=== PATIENT | female | born 1980 | race Native Hawaiian/Other Pacific Islander ===

== ENCOUNTER 2016-03-25 11:09 | Inpatient (IN) | payer OTHER ==
[~2016-03-25] VITALS: Ht 165.1 cm; Wt 82.6 kg
[~2016-03-25 11:09] MED LIST: LANTUS100 MG/ML SC
[2016-03-25 11:47] VITALS: BP 158/80; TEMP 99.7
[2016-03-25 13:29] LABS: PLATELET COUNT 218 K/uL (152-353)
[2016-03-25 13:37] LABS: POTASSIUM 3.6 mmol/L (3.6-5.2); SODIUM 131 mmol/L (136-145)
[2016-03-25 17:18] VITALS: BP 160/87; TEMP 98.9; Ht 165.1 cm; Wt 82.6 kg
[2016-03-25 20:00] VITALS: BP 137/78; TEMP 97.8
[2016-03-26 04:00] VITALS: BP 138/73; TEMP 99.9
[2016-03-26 05:15] LABS: PLATELET COUNT 198 K/uL (152-353)
[2016-03-26 05:36] LABS: POTASSIUM 3.6 mmol/L (3.6-5.2); SODIUM 132 mmol/L (136-145)
[2016-03-26 12:12] VITALS: BP 137/71; TEMP 98.4
[2016-03-26 16:00] VITALS: BP 111/56; BP 141/70; TEMP 99.2
[2016-03-26 20:35] VITALS: BP 120/69; TEMP 99
[2016-03-27] VITALS: BP 137/78; TEMP 97.9
[2016-03-27 04:00] VITALS: BP 99/59; TEMP 98.1
[2016-03-27 05:55] LABS: PLATELET COUNT 193 K/uL (152-353)
[2016-03-27 06:16] LABS: POTASSIUM 3.3 mmol/L (3.6-5.2); SODIUM 134 mmol/L (136-145)
[2016-03-27 08:00] VITALS: BP 126/70; TEMP 98.7
[2016-03-27 12:00] VITALS: BP 132/74; TEMP 98.3
[2016-03-27 20:00] VITALS: BP 154/88; TEMP 97.4
[2016-03-28] VITALS: BP 119/59; TEMP 97.1
[2016-03-28 05:10] LABS: PLATELET COUNT 199 K/uL (152-353)
[2016-03-28 05:34] LABS: POTASSIUM 3.8 mmol/L (3.6-5.2); SODIUM 133 mmol/L (136-145)
[2016-03-28 08:00] VITALS: BP 121/71; TEMP 98.3
[2016-03-28 12:18] VITALS: BP 128/79; TEMP 97.8
== END 2016-03-28 15:55 | disposition home or self-care (01) | DRG 639 ==
LOC: ED 11:09 → MED/SURG 14:19
PROVIDERS: Emergency Medicine; ADMIT Specialist
DX: E11.621 Type 2 diabetes mellitus with foot ulcer (principal); B95.4 Other streptococcus as the cause of diseases classified elsewhere
CPT/HCPCS: 36415; 80048; 80053; 82948; 83036; 83735; 85027; 85651; 87070; 87077; 87185; 87186; 87205; 96365; 96372; 99284; J1815; J2543; J3370

== ENCOUNTER 2017-04-18 17:07 | Emergency (ER) | payer OTHER ==
[~2017-04-18] VITALS: Ht 165.1 cm; Wt 77.1 kg
[2017-04-18 18:11] LABS: PLATELET COUNT 225 K/uL (152-353)
[2017-04-18 18:22] LABS: POTASSIUM 3.6 mmol/L (3.6-5.2)
[2017-04-18 18:45] VITALS: BP 157/89; TEMP 99.9
== END 2017-04-18 18:48 | disposition home or self-care (01) ==
LOC: ED 17:07
DX: J06.9 Acute upper respiratory infection, unspecified (principal)
CPT/HCPCS: 36415; 80053; 85027; 87081; 87804; 87880; 99283

== ENCOUNTER 2017-06-19 13:52 | Outpatient (CLI) | payer OTHER | END 2017-06-19 21:50 | disposition home or self-care (01) | LOC: RAD 13:52 | DX: M54.5 Low back pain (principal) ==

== ENCOUNTER 2017-08-02 14:27 | Observation (INO) | payer OTHER ==
[~2017-08-02] VITALS: Ht 165.1 cm; Wt 76.7 kg
[2017-08-02] VITALS (14 sets, daily range): BP systolic 117–147; BP diastolic 67–86; TEMP 97.6–98.7; Ht 165.1 cm; Wt 76.7 kg
[2017-08-02 09:58] LABS: PLATELET COUNT 202 K/uL (152-353)
--- NOTE | 2017-08-02 16:23 | NUR ---
REPORT CALLED FROM OR.
--- NOTE | 2017-08-02 16:23 | NUR ---
PT RECEIVED FROM OR. PT DROWSY WITH O2 ON. DRESSINGS DRY AND INTACT. BP 147/73. TEMP 98.7. PULSE 97. RR EQUAL NONLABORED AT 16. O2 SAT 95% ON RA. SR UP X2. BED IN LOWEST POSITION. CALL LIGHT IN REACH. WILL CONTINUE TO MONTIOR.
[2017-08-03] VITALS: BP 119/69; TEMP 97.7
[2017-08-03 04:00] VITALS: BP 111/65; TEMP 98.1
[2017-08-03 05:52] LABS: PLATELET COUNT 192 K/uL (152-353)
[2017-08-03 08:00] VITALS: BP 125/79; TEMP 98.5
--- NOTE | 2017-08-03 11:32 | NUR ---
DC INSTRUCTIONS GIVEN TO PT. PT VERBALIZED UNDERSTANDING. NAD NOTED. IV DC;'D WITH CANNULA INTACT AND SITE CARE PROVIDED. PT LEFT WITH FAMILY MEMBER AT THIS TIME VIA WC.
== END 2017-08-03 11:30 | disposition home or self-care (01) ==
LOC: OR 14:27 → MED/SURG 16:18
PROVIDERS: Emergency Medicine; ADMIT Student in an Organized Health Care Education/Training Program
PROC: 0DTJ4ZZ Resection of Appendix, Percutaneous Endoscopic Approach (ICD-10-PCS; principal; 2017-08-02)
DX: K35.80 Unspecified acute appendicitis (principal); E10.9 Type 1 diabetes mellitus without complications
CPT/HCPCS: 36415; 80053; 81000; 81025; 85027; 96365; 96375; 99220; 99284; J0180; G0378; J0132; J0330; J0690; J1100; J1170; J1644; J1885; J2001; J2250; J2405; J2543; J2704; J2765; J3010; J3490; Q9963

== ENCOUNTER 2017-08-13 13:52 | Emergency (ER) | payer OTHER ==
[~2017-08-13] VITALS: Ht 165.1 cm; Wt 77.1 kg
[2017-08-13 14:05] VITALS: BP 137/76; TEMP 98.3
== END 2017-08-13 16:11 | disposition home or self-care (01) ==
LOC: ED 13:52
DX: Z48.89 Encounter for other specified surgical aftercare (principal)
CPT/HCPCS: 99281

== ENCOUNTER 2018-10-04 08:34 | Emergency (ER) | payer OTHER ==
[~2018-10-04] VITALS: Ht 165.1 cm; Wt 81.2 kg
[2018-10-04 08:40] VITALS: BP 177/88; TEMP 97.5
== END 2018-10-04 09:15 | disposition home or self-care (01) ==
LOC: ED 08:34
DX: S93.491A Sprain of other ligament of right ankle, initial encounter (principal); T78.8XXA Other adverse effects, not elsewhere classified, initial encounter; Y92.89 Other specified places as the place of occurrence of the external cause
CPT/HCPCS: 99281

== ENCOUNTER 2019-02-15 08:48 | Emergency (ER) | payer OTHER ==
[~2019-02-15] VITALS: Ht 165.1 cm; Wt 81.2 kg
[2019-02-15 10:08] LABS: POTASSIUM 4.1 mmol/L (3.6-5.2)
[2019-02-15 10:10] LABS: PLATELET COUNT 162 K/uL (152-353)
[2019-02-15 12:32] VITALS: BP 174/89; TEMP 98.2
== END 2019-02-15 12:32 | disposition home or self-care (01) ==
LOC: ED 08:48
PROVIDERS: Family Medicine
DX: E11.621 Type 2 diabetes mellitus with foot ulcer (principal); E11.65 Type 2 diabetes mellitus with hyperglycemia
CPT/HCPCS: 36415; 80053; 81000; 82962; 85027; 96372; 99283; J1815

== ENCOUNTER 2020-05-25 11:29 | Outpatient (CLI) | payer OTHER ==
[2020-05-25 11:47] LABS: PLATELET COUNT 182 K/uL (152-353)
[2020-05-25 11:53] LABS: POTASSIUM 4.6 mmol/L (3.6-5.2)
== END 2020-05-25 22:13 | disposition home or self-care (01) ==
LOC: LAB 11:29
PROVIDERS: ATTEND Physician Assistant
DX: I10 Essential (primary) hypertension (principal); E78.00 Pure hypercholesterolemia, unspecified; E11.9 Type 2 diabetes mellitus without complications; E55.9 Vitamin D deficiency, unspecified
CPT/HCPCS: 80053; 80061; 82306; 83036; 85027

== ENCOUNTER 2020-08-17 16:08 | Emergency (ER) | payer OTHER ==
[~2020-08-17] VITALS: Ht 165.1 cm; Wt 86.2 kg
[2020-08-17 16:11] VITALS: TEMP 97
[2020-08-17 18:45] VITALS: BP 139/78
== END 2020-08-17 18:45 | disposition home or self-care (01) ==
LOC: ED 16:08
DX: Z48.01 Encounter for change or removal of surgical wound dressing (principal); L89.614 Pressure ulcer of right heel, stage 4
CPT/HCPCS: 96372; 99283; J0696

== ENCOUNTER 2020-09-07 11:49 | Emergency (ER) | payer OTHER ==
[2020-09-15 10:29] LABS: PLATELET COUNT 182 K/uL (152-353)
[2020-09-15 10:30] LABS: POTASSIUM 2.9 mmol/L (3.6-5.2)
== END 2020-09-07 17:00 | disposition home or self-care (01) ==
LOC: ED 11:49
PROVIDERS: Emergency Medicine Emergency Medical Services
DX: L89.619 Pressure ulcer of right heel, unspecified stage (principal); L03.115 Cellulitis of right lower limb; D64.89 Other specified anemias; R00.0 Tachycardia, unspecified
CPT/HCPCS: 36415; 80053; 82150; 83690; 85027; 93005; 96360; 96361; 96365; 99284

== ENCOUNTER 2021-07-30 10:52 | Emergency (ER) | payer OTHER ==
[~2021-07-30] VITALS: Ht 165.1 cm; Wt 82.6 kg
[2021-07-30 11:00] VITALS: TEMP 99.2
[2021-07-30 13:14] LABS: PLATELET COUNT 193 K/uL (152-353)
[2021-07-30 13:23] LABS: POTASSIUM 3.7 mmol/L (3.6-5.2); SODIUM 139 mmol/L (136-145)
[2021-07-30 15:58] VITALS: BP 142/76
== END 2021-07-30 15:59 | disposition home or self-care (01) ==
LOC: ED 10:52
PROVIDERS: Emergency Medicine
DX: R10.84 Generalized abdominal pain (principal); A59.8 Trichomoniasis of other sites
CPT/HCPCS: 80053; 81000; 85027; 99283

== ENCOUNTER 2022-03-11 14:28 | Emergency (ER) | payer OTHER ==
[~2022-03-11] VITALS: Ht 165.1 cm; Wt 82.6 kg
[2022-03-11 14:36] VITALS: TEMP 97.9
[2022-03-11 15:24] VITALS: BP 153/78
== END 2022-03-11 15:26 | disposition home or self-care (01) ==
LOC: ED 14:28
DX: H65.192 Other acute nonsuppurative otitis media, left ear (principal)
CPT/HCPCS: 99281

== ENCOUNTER 2022-05-13 12:30 | Outpatient (CLI) | payer OTHER | END 2022-05-13 22:54 | disposition home or self-care (01) | LOC: MRI 12:30 | PROVIDERS: ATTEND Student in an Organized Health Care Education/Training Program | DX: E10.621 Type 1 diabetes mellitus with foot ulcer (principal); L97.522 Non-pressure chronic ulcer of other part of left foot with fat layer exposed; I10 Essential (primary) hypertension; Z89.611 Acquired absence of right leg above knee | CPT/HCPCS: 36415; 82565; 84520; A9576 ==

== ENCOUNTER 2022-07-18 13:02 | Inpatient (IN) | payer OTHER ==
[~2022-07-18] VITALS: Ht 167.6 cm; Wt 83.7 kg
[2022-07-18 14:14] VITALS: BP 159/62; TEMP 98.8; Ht 167.6 cm; Wt 83.7 kg
[2022-07-18] MEDS ORDERED: HYDR5TAB9 PO (14:35)
[2022-07-18] MEDS ORDERED: ONDANSETRON HCL ODT PO (14:36)
[2022-07-18] MEDS ORDERED: TIZA4TAB5 PO (14:37)
[2022-07-18] MEDS ORDERED: HUMULIN R500 UNIT/M SC (14:38)
[2022-07-18] MEDS ORDERED: GRALISE600 MG PO (14:39)
[2022-07-18] MEDS ORDERED: VITAMIN D350000 UNIT PO (14:41)
[2022-07-18] MEDS ORDERED: OMEP40CA PO (14:41)
[2022-07-18] MEDS ORDERED: XYZAL ALLERGY 245 MG PO (14:42)
[2022-07-18] MEDS ORDERED: ZESTRIL40 MG PO (14:42)
[2022-07-18] MEDS ORDERED: CRANBERR5 PO (14:46)
[2022-07-18 16:29] VITALS: BP 142/61; TEMP 98.9
[2022-07-18 16:31] LABS: PLATELET COUNT 316 K/uL (152-353)
[2022-07-18 16:44] LABS: POTASSIUM 4.3 mmol/L (3.6-5.2)
[2022-07-18 20:00] VITALS: BP 166/80; TEMP 98.9
[2022-07-18 23:33] VITALS: BP 149/79; TEMP 98.6
[2022-07-19 03:46] VITALS: BP 130/78; TEMP 98.6
[2022-07-19 08:00] VITALS: BP 152/77; TEMP 97.6
[2022-07-19 12:00] VITALS: BP 167/77; TEMP 97.6
[2022-07-19 16:00] VITALS: BP 146/53; TEMP 98.6
[2022-07-19 19:31] VITALS: BP 172/88; TEMP 98.5
[2022-07-19 23:52] VITALS: BP 113/56; TEMP 97.7
[2022-07-20 03:53] VITALS: BP 140/58; TEMP 98
[2022-07-20 07:35] LABS: PLATELET COUNT 294 K/uL (152-353)
[2022-07-20 07:52] LABS: POTASSIUM 4.3 mmol/L (3.6-5.2)
[2022-07-20 08:00] VITALS: BP 158/80; TEMP 98.5
[2022-07-20 12:00] VITALS: BP 151/83; TEMP 98
[2022-07-20 16:00] VITALS: BP 147/64; TEMP 98.4
[2022-07-20 20:00] VITALS: BP 144/70; TEMP 98.5
[2022-07-21] VITALS: BP 126/61; TEMP 98.3
[2022-07-21 04:00] VITALS: BP 150/67; TEMP 98.5
[2022-07-21 08:00] VITALS: BP 157/81; TEMP 98.1
[2022-07-21 12:00] VITALS: BP 161/75; TEMP 98.5
[2022-07-21 16:00] VITALS: BP 160/60; TEMP 98.4
[2022-07-21 20:00] VITALS: BP 141/75; TEMP 98.4
[2022-07-22] VITALS (7 sets, daily range): BP systolic 121–170; BP diastolic 56–84; TEMP 97.9–98.7
[2022-07-22 07:21] LABS: PLATELET COUNT 279 K/uL (152-353)
[2022-07-22 07:37] LABS: POTASSIUM 4.4 mmol/L (3.6-5.2)
[2022-07-23 04:00] VITALS: BP 142/59; TEMP 98.1
[2022-07-23 08:00] VITALS: BP 129/75; TEMP 97.4
== END 2022-07-23 11:45 | DRG 540 ==
LOC: MED/SURG 13:02
PROVIDERS: Internal Medicine; ADMIT Internal Medicine; ATTEND Internal Medicine
DX: M86.8X7 Other osteomyelitis, ankle and foot (principal); L03.116 Cellulitis of left lower limb; E11.65 Type 2 diabetes mellitus with hyperglycemia; Z79.4 Long term (current) use of insulin; I10 Essential (primary) hypertension; G62.89 Other specified polyneuropathies; Z72.0 Tobacco use; Z89.611 Acquired absence of right leg above knee
CPT/HCPCS: 80048; 80053; 83036; 85027; J0878; J1642; J1650; J2405; J3370

== ENCOUNTER 2022-10-31 12:12 | Outpatient (CLI) | payer OTHER ==
[~2022-10-31] VITALS: Ht 165.1 cm; Wt 87.5 kg
[~2022-10-31 12:12] MED LIST changes: +CRANBERR5 PO; +GRALISE600 MG PO; +HUMULIN R500 UNIT/M SC; +HYDR5TAB9 PO; +OMEP40CA PO; +ONDANSETRON HCL ODT PO; +TIZA4TAB5 PO; +VITAMIN D350000 UNIT PO; +XYZAL ALLERGY 245 MG PO; +ZESTRIL40 MG PO
[2022-10-31 13:10] VITALS: BP 124/59; TEMP 97.8
[2022-10-31 14:09] LABS: PLATELET COUNT 169 K/uL (152-353)
[2022-10-31 14:23] LABS: POTASSIUM 4.1 mmol/L (3.6-5.2)
[2022-10-31 16:45] VITALS: BP 128/70; TEMP 98.4
== END 2022-10-31 23:17 | disposition home or self-care (01) ==
LOC: INF 12:12
PROVIDERS: Family Medicine; ATTEND Internal Medicine Endocrinology, Diabetes & Metabolism
DX: M86.18 Other acute osteomyelitis, other site (principal)
CPT/HCPCS: 80053; 85027; 85652; 86140; 96365; J3370

== ENCOUNTER 2022-11-02 13:20 | Outpatient (CLI) | payer OTHER ==
[~2022-11-02] VITALS: Ht 165.1 cm; Wt 87.7 kg
[2022-11-02 13:30] VITALS: BP 159/79; TEMP 98.4
== END 2022-11-02 21:23 | disposition home or self-care (01) ==
LOC: INF 13:20
PROVIDERS: ATTEND Internal Medicine
DX: M86.272 Subacute osteomyelitis, left ankle and foot (principal)
CPT/HCPCS: 36591; 80202; 96365; 96366; 99211; J3370

== ENCOUNTER 2022-11-03 12:41 | Outpatient (CLI) | payer OTHER ==
[~2022-11-03] VITALS: Ht 165.1 cm; Wt 87.7 kg
[2022-11-03 12:46] VITALS: BP 169/68; TEMP 99.2
== END 2022-11-03 20:02 | disposition home or self-care (01) ==
LOC: INF 12:41
PROVIDERS: ATTEND Internal Medicine
DX: M86.272 Subacute osteomyelitis, left ankle and foot (principal)
CPT/HCPCS: 96365; 96366; J3370

== ENCOUNTER 2022-11-04 12:00 | Outpatient (CLI) | payer OTHER ==
[~2022-11-04] VITALS: Ht 165.1 cm; Wt 87.7 kg
[2022-11-04 12:05] VITALS: BP 130/78; TEMP 98.6
== END 2022-11-04 19:02 | disposition home or self-care (01) ==
LOC: INF 12:00
PROVIDERS: ATTEND Internal Medicine
DX: M86.272 Subacute osteomyelitis, left ankle and foot (principal)
CPT/HCPCS: 96365; 96366; J3370

== ENCOUNTER 2022-11-05 12:30 | Outpatient (CLI) | payer OTHER ==
[2022-11-05 12:42] VITALS: BP 135/72; TEMP 98.3
[2022-11-05 15:50] VITALS: BP 154/77; TEMP 98.8
== END 2022-11-05 23:01 | disposition home or self-care (01) ==
LOC: INF 12:30
PROVIDERS: ATTEND Internal Medicine
DX: M86.272 Subacute osteomyelitis, left ankle and foot (principal)

== ENCOUNTER 2022-11-07 12:03 | Outpatient (CLI) | payer OTHER ==
[~2022-11-07] VITALS: Ht 165.1 cm; Wt 87.7 kg
[2022-11-07 12:05] VITALS: BP 149/76; TEMP 99
== END 2022-11-07 23:33 | disposition home or self-care (01) ==
LOC: INF 12:03
PROVIDERS: ATTEND Internal Medicine
DX: M86.272 Subacute osteomyelitis, left ankle and foot (principal)
CPT/HCPCS: 96365; 96366; J3370

== ENCOUNTER 2022-11-10 13:55 | Outpatient (CLI) | payer OTHER ==
[~2022-11-10] VITALS: Ht 165.2 cm; Wt 68.0 kg
[2022-11-10 14:00] VITALS: BP 115/71; TEMP 98.5
[2022-11-10 14:45] LABS: PLATELET COUNT 170 K/uL (152-353)
== END 2022-11-10 23:58 | disposition home or self-care (01) ==
LOC: INF 13:55
PROVIDERS: ATTEND Internal Medicine Endocrinology, Diabetes & Metabolism
DX: M86.272 Subacute osteomyelitis, left ankle and foot (principal)
CPT/HCPCS: 36591; 80053; 85027; 85652; 86140; 96365; 96366; 99211; J3370

== ENCOUNTER 2022-11-11 12:22 | Outpatient (CLI) | payer OTHER ==
[~2022-11-11] VITALS: Ht 165.1 cm; Wt 87.7 kg
[2022-11-11 12:45] VITALS: BP 132/75; TEMP 99.1
== END 2022-11-11 20:45 | disposition home or self-care (01) ==
LOC: INF 12:22
PROVIDERS: ATTEND Internal Medicine Endocrinology, Diabetes & Metabolism
DX: M86.272 Subacute osteomyelitis, left ankle and foot (principal)
CPT/HCPCS: 96365; 96366; J3370

== ENCOUNTER 2022-11-13 12:17 | Outpatient (CLI) | payer OTHER ==
[~2022-11-13] VITALS: Ht 165.1 cm; Wt 87.7 kg
[2022-11-13 12:25] VITALS: BP 148/68; TEMP 98.6
[2022-11-13 15:05] VITALS: BP 140/72; TEMP 98.6
== END 2022-11-13 23:01 | disposition home or self-care (01) ==
LOC: INF 12:17
PROVIDERS: ATTEND Internal Medicine Endocrinology, Diabetes & Metabolism
DX: M86.272 Subacute osteomyelitis, left ankle and foot (principal)
CPT/HCPCS: 96365; 96366

== ENCOUNTER 2022-11-14 13:21 | Outpatient (CLI) | payer OTHER ==
[2022-11-14 13:30] VITALS: BP 131/66; TEMP 98.4
== END 2022-11-14 23:55 | disposition home or self-care (01) ==
LOC: INF 13:21
PROVIDERS: ATTEND Internal Medicine Endocrinology, Diabetes & Metabolism
DX: M86.272 Subacute osteomyelitis, left ankle and foot (principal)
CPT/HCPCS: 96365; 96366

== ENCOUNTER 2022-11-15 12:39 | Outpatient (CLI) | payer OTHER ==
[~2022-11-15] VITALS: Ht 165.1 cm; Wt 87.7 kg
[2022-11-15 12:45] VITALS: BP 97/78; TEMP 98.4
== END 2022-11-15 22:06 | disposition home or self-care (01) ==
LOC: INF 12:39
PROVIDERS: ATTEND Internal Medicine Endocrinology, Diabetes & Metabolism
DX: M86.272 Subacute osteomyelitis, left ankle and foot (principal)
CPT/HCPCS: 96365; 96366; J3370

== ENCOUNTER 2022-11-16 12:51 | Outpatient (CLI) | payer OTHER ==
[~2022-11-16] VITALS: Ht 165.1 cm; Wt 87.7 kg
[2022-11-16 12:58] VITALS: BP 151/66; TEMP 98.7
== END 2022-11-16 22:50 | disposition home or self-care (01) ==
LOC: INF 12:51
PROVIDERS: ATTEND Internal Medicine
DX: M86.272 Subacute osteomyelitis, left ankle and foot (principal)
CPT/HCPCS: 96365; 96366; J3370

== ENCOUNTER 2022-11-17 12:47 | Outpatient (CLI) | payer OTHER ==
[~2022-11-17] VITALS: Ht 165.1 cm; Wt 87.5 kg
[2022-11-17 12:55] VITALS: BP 151/77; TEMP 98.1
[2022-11-17 13:42] LABS: PLATELET COUNT 183 K/uL (152-353)
== END 2022-11-17 19:29 | disposition home or self-care (01) ==
LOC: INF 12:47
PROVIDERS: ATTEND Internal Medicine
DX: M86.272 Subacute osteomyelitis, left ankle and foot (principal)
CPT/HCPCS: 36591; 80053; 85027; 85652; 86140; 96365; 96366; 99211; J3370

== ENCOUNTER 2022-11-19 12:23 | Outpatient (CLI) | payer OTHER ==
[~2022-11-19] VITALS: Ht 30.5 cm; Wt 0.5 kg
[2022-11-19 14:41] VITALS: BP 167/62; TEMP 98.4
== END 2022-11-19 23:21 | disposition home or self-care (01) ==
LOC: INF 12:23
PROVIDERS: ATTEND Internal Medicine
DX: M86.272 Subacute osteomyelitis, left ankle and foot (principal)
CPT/HCPCS: 96365; 96366; J3370

== ENCOUNTER 2022-11-21 12:39 | Outpatient (CLI) | payer OTHER ==
[~2022-11-21] VITALS: Ht 165.1 cm; Wt 87.7 kg
[2022-11-21 13:00] VITALS: BP 167/81; TEMP 98.9
== END 2022-11-21 19:09 | disposition home or self-care (01) ==
LOC: INF 12:39
PROVIDERS: ATTEND Internal Medicine
DX: M86.272 Subacute osteomyelitis, left ankle and foot (principal)
CPT/HCPCS: 80202; 96365; 96366; J3370

== ENCOUNTER 2022-11-22 12:40 | Outpatient (CLI) | payer OTHER ==
[~2022-11-22] VITALS: Ht 165.1 cm; Wt 68.0 kg
[2022-11-22 12:38] VITALS: BP 180/84; TEMP 98.9
== END 2022-11-22 19:00 | disposition home or self-care (01) ==
LOC: INF 12:40
PROVIDERS: ATTEND Internal Medicine
DX: M86.272 Subacute osteomyelitis, left ankle and foot (principal)
CPT/HCPCS: 96365; 96366; J3370

== ENCOUNTER 2022-11-23 12:58 | Outpatient (CLI) | payer OTHER ==
[~2022-11-23] VITALS: Ht 165.1 cm; Wt 87.7 kg
[2022-11-23 13:13] VITALS: BP 174/71; TEMP 98.4
== END 2022-11-23 19:19 | disposition home or self-care (01) ==
LOC: INF 12:58
PROVIDERS: ATTEND Internal Medicine Endocrinology, Diabetes & Metabolism
DX: M86.272 Subacute osteomyelitis, left ankle and foot (principal)
CPT/HCPCS: 96365; 96366; J3370

== ENCOUNTER 2022-11-24 12:47 | Outpatient (CLI) | payer OTHER ==
[~2022-11-24] VITALS: Ht 165.1 cm; Wt 87.7 kg
[2022-11-24 12:55] VITALS: BP 157/64; TEMP 98.4
[2022-11-24 13:39] LABS: PLATELET COUNT 186 K/uL (152-353)
== END 2022-11-24 18:50 | disposition home or self-care (01) ==
LOC: INF 12:47
PROVIDERS: ATTEND Internal Medicine Endocrinology, Diabetes & Metabolism
DX: M86.272 Subacute osteomyelitis, left ankle and foot (principal)
CPT/HCPCS: 36415; 36591; 80053; 85027; 85652; 86140; 96365; 96366; 99211; J3370

== ENCOUNTER 2022-11-25 12:37 | Outpatient (CLI) | payer OTHER ==
[~2022-11-25] VITALS: Ht 165.1 cm; Wt 87.7 kg
[2022-11-25 12:45] VITALS: BP 142/82; TEMP 97.6
== END 2022-11-25 19:20 | disposition home or self-care (01) ==
LOC: INF 12:37
PROVIDERS: ATTEND Internal Medicine Endocrinology, Diabetes & Metabolism
DX: M86.272 Subacute osteomyelitis, left ankle and foot (principal)
CPT/HCPCS: 96365; 96366; J3370

== ENCOUNTER 2022-11-26 12:55 | Outpatient (CLI) | payer OTHER ==
[~2022-11-26] VITALS: Ht 165.1 cm; Wt 87.7 kg
[2022-11-26 13:03] VITALS: BP 162/63; TEMP 98.5
== END 2022-11-26 23:16 | disposition home or self-care (01) ==
LOC: INF 12:55
PROVIDERS: ATTEND Internal Medicine Endocrinology, Diabetes & Metabolism
DX: M86.272 Subacute osteomyelitis, left ankle and foot (principal)
CPT/HCPCS: 96365; 96366; J3370

== ENCOUNTER 2022-11-28 12:39 | Outpatient (CLI) | payer OTHER ==
[~2022-11-28] VITALS: Ht 165.1 cm; Wt 87.7 kg
[2022-11-28 12:45] VITALS: BP 201/87; TEMP 98.8
== END 2022-11-28 23:00 | disposition home or self-care (01) ==
LOC: INF 12:39
PROVIDERS: ATTEND Internal Medicine Endocrinology, Diabetes & Metabolism
DX: M86.272 Subacute osteomyelitis, left ankle and foot (principal)
CPT/HCPCS: 96365; 96366; J3370

== ENCOUNTER 2022-11-30 12:45 | Outpatient (CLI) | payer OTHER ==
[~2022-11-30] VITALS: Ht 165.1 cm; Wt 87.7 kg
== END 2022-11-30 19:53 | disposition home or self-care (01) ==
LOC: INF 12:45
PROVIDERS: ATTEND Internal Medicine
DX: M86.272 Subacute osteomyelitis, left ankle and foot (principal)
CPT/HCPCS: 96365; 96366; J3370

== ENCOUNTER 2022-12-01 11:23 | Outpatient (CLI) | payer OTHER ==
[~2022-12-01] VITALS: Ht 165.1 cm; Wt 87.7 kg
[2022-12-01 12:48] VITALS: BP 169/79; TEMP 99.3
[2022-12-01 13:12] LABS: PLATELET COUNT 171 K/uL (152-353)
[2022-12-01 13:21] LABS: POTASSIUM 3.9 mmol/L (3.6-5.2)
== END 2022-12-01 19:37 | disposition home or self-care (01) ==
LOC: INF 11:23
PROVIDERS: ATTEND Internal Medicine
DX: M86.272 Subacute osteomyelitis, left ankle and foot (principal)
CPT/HCPCS: 36591; 80053; 85027; 85652; 86140; 96365; 96366; 99211; J3370

== ENCOUNTER 2022-12-13 12:59 | Outpatient (CLI) | payer OTHER ==
[~2022-12-13] VITALS: Ht 165.1 cm; Wt 87.7 kg
== END 2022-12-13 20:17 | disposition home or self-care (01) ==
LOC: INF 12:59
PROVIDERS: ATTEND Internal Medicine Endocrinology, Diabetes & Metabolism
DX: M86.272 Subacute osteomyelitis, left ankle and foot (principal)
CPT/HCPCS: 80202; 96365; J3370

== ENCOUNTER 2022-12-14 12:45 | Outpatient (CLI) | payer OTHER ==
[~2022-12-14] VITALS: Ht 165.1 cm; Wt 87.7 kg
[2022-12-14 13:00] VITALS: BP 150/80; TEMP 98.3
[2022-12-14 16:05] VITALS: BP 158/84; TEMP 98.7
== END 2022-12-14 19:26 | disposition home or self-care (01) ==
LOC: INF 12:45
PROVIDERS: ATTEND Internal Medicine
DX: M86.272 Subacute osteomyelitis, left ankle and foot (principal)
CPT/HCPCS: 96365; J3370

== ENCOUNTER 2022-12-15 10:51 | Outpatient (CLI) | payer OTHER ==
[~2022-12-15] VITALS: Ht 165.1 cm; Wt 87.7 kg
== END 2022-12-15 19:13 | disposition home or self-care (01) ==
LOC: MRI 10:51 → INF 10:51 → MRI 11:30 → INF 13:00
PROVIDERS: ATTEND Internal Medicine
DX: M86.272 Subacute osteomyelitis, left ankle and foot (principal)
CPT/HCPCS: 36415; 82565; 84520; 96365; 96366; J3370

== ENCOUNTER 2022-12-16 12:30 | Outpatient (CLI) | payer OTHER ==
[~2022-12-16] VITALS: Ht 165.1 cm; Wt 87.7 kg
[2022-12-16 12:38] VITALS: BP 171/73; TEMP 98.2
[2022-12-16 16:15] VITALS: BP 159/75; TEMP 97.9
== END 2022-12-16 19:03 | disposition home or self-care (01) ==
LOC: INF 12:30
PROVIDERS: ATTEND Internal Medicine
DX: M86.272 Subacute osteomyelitis, left ankle and foot (principal)
CPT/HCPCS: 96365; 96366; A9576; J3370

== ENCOUNTER 2022-12-17 12:43 | Outpatient (CLI) | payer OTHER ==
[2022-12-17 12:45] VITALS: BP 171/63; TEMP 98.5
== END 2022-12-17 18:52 | disposition home or self-care (01) ==
LOC: INF 12:43
PROVIDERS: ATTEND Family Medicine
DX: M86.272 Subacute osteomyelitis, left ankle and foot (principal)
CPT/HCPCS: 96365; 96366; J3370

== ENCOUNTER 2022-12-19 12:19 | Outpatient (CLI) | payer OTHER ==
[~2022-12-19] VITALS: Ht 165.1 cm; Wt 87.7 kg
== END 2022-12-19 23:00 | disposition home or self-care (01) ==
LOC: INF 12:19
PROVIDERS: ATTEND Internal Medicine
DX: M86.272 Subacute osteomyelitis, left ankle and foot (principal)
CPT/HCPCS: 96365; 96366; J3370

== ENCOUNTER 2022-12-20 12:36 | Outpatient (CLI) | payer OTHER ==
[~2022-12-20] VITALS: Ht 165.1 cm; Wt 87.7 kg
== END 2022-12-20 18:56 | disposition home or self-care (01) ==
LOC: INF 12:36
PROVIDERS: ATTEND Internal Medicine
DX: M86.272 Subacute osteomyelitis, left ankle and foot (principal)
CPT/HCPCS: 96365; 96366; J3370

== ENCOUNTER 2023-04-27 14:53 | Outpatient (CLI) | payer OTHER | END 2023-04-27 19:33 | disposition home or self-care (01) | LOC: RAD 14:53 | PROVIDERS: ATTEND Family Medicine | DX: E11.621 Type 2 diabetes mellitus with foot ulcer (principal); L97.422 Non-pressure chronic ulcer of left heel and midfoot with fat layer exposed ==